=== PATIENT | female | born 1985 | race Caucasian/White ===

== ENCOUNTER 2021-02-19 12:26 | Emergency (ER) | payer OTHER ==
[~2021-02-19] VITALS: Ht 154.9 cm; Wt 54.4 kg
[2021-02-19] MEDS ORDERED: PREDNISONE 20 M20 M1 PO (12:58)
[2021-02-19] MEDS ORDERED: PEPCID20 MG PO (12:58)
[2021-02-19 13:08] VITALS: BP 116/71
== END 2021-02-19 13:09 | disposition home or self-care (01) ==
LOC: M.ERS 12:26
DX: T63.441A Toxic effect of venom of bees, accidental (unintentional), initial encounter (principal); Z88.8 Allergy status to other drugs, medicaments and biological substances; Y92.89 Other specified places as the place of occurrence of the external cause

== ENCOUNTER → 2021-07-03 | Outpatient (CLI) | payer OTHER ==
[~2021-07-03] MED LIST: PEPCID20 MG PO; PREDNISONE 20 M20 M1 PO
== END ==
LOC: M.RAD 11:37
PROVIDERS: ATTEND Internal Medicine
DX: M79.671 Pain in right foot (principal)